=== PATIENT | male | born 1975 | race Caucasian/White ===

== ENCOUNTER 2023-01-12 05:34 | Inpatient (IN) | payer SELFPAY ==
[~2023-01-12] VITALS: Ht 175.3 cm; Wt 90.7 kg
[2023-01-12 05:55] VITALS: BP_SYST 124; PULSE 72; RESP 17; TEMP 97.9; O2SAT 95
[2023-01-12] MEDS ORDERED: NACL 0.9% 1,000 ML IV ONE ×2 (06:15→08:30)
[2023-01-12] MEDS ORDERED: MORPHINE 4 MG INJ. 4 MG/ML VIAL IVP ONE (06:15)
[2023-01-12] MEDS ORDERED: ONDANSETRON HCL 4 MG/2 ML VIAL IVP ONE (06:15)
[2023-01-12 06:25] LABS: BASOPHILS % (AUTO) 0.2 % (0.0-2.0); EOSINOPHILS % (AUTO) 0.1 % (0.0-4.0); HEMOGLOBIN 15.2 g/dL (14.0-18.0); LYMPHOCYTES # (AUTO) 0.8 K/uL (1.0-5.5); LYMPHOCYTES % (AUTO) 5.7 % (20.5-51.5); MEAN CORPUSCULAR HEMOGLOBIN 27 pg (27-31); MEAN CORPUSCULAR HGB CONC 32 % (32-36); MEAN CORPUSCULAR VOLUME 83 fL (79.0-98.0); MONOCYTES # (AUTO) 0.6 K/uL (0.0-1.0); MONOCYTES % (AUTO) 4.3 % (1.7-9.3); NEUTROPHILS # (AUTO) 11.8 K/uL (1.8-7.7); NEUTROPHILS % (AUTO) 89.7 % (40.0-70.0); PLATELET COUNT (AUTO) 162 K/uL (130-430); RED BLOOD CELL COUNT(AUTO) 5.69 MIL/uL (4.2-6.2); RED CELL DISTRIBUTION WIDTH 13.1 % (9.0-15.0); WHITE BLOOD COUNT (AUTO) 13.2 K/uL (4.8-10.8)
[2023-01-12 06:39] LABS: CALCIUM 9.3 mg/dL (8.4-11.0); CREATININE 0.99 mg/dL (0.55-1.30); POTASSIUM 4.1 mmol/L (3.5-5.1)
[2023-01-12 06:45] LABS: ALBUMIN 3.8 g/dL (3.4-4.8); BILIRUBIN,DIRECT 0.2 mg/dL (0.0-0.3); TOTAL BILIRUBIN 0.8 mg/dL (0.0-1.0); TOTAL PROTEIN, SERUM 7.1 g/dL (6.4-8.3)
[2023-01-12 07:42] LABS: BILIRUBIN,URINE NEGATIVE (NEGATIVE); BLOOD, URINE NEGATIVE (NEGATIVE); CLARITY/URINE CLEAR (CLEAR); COLOR,URINE YELLOW (YELLOW); GLUCOSE,URINE NEGATIVE (NEGATIVE); KETONES,URINE NEGATIVE (NEGATIVE); LEUKOCYTE ESTERASE ,URINE NEGATIVE (NEGATIVE); NITRITE, URINE NEGATIVE (NEGATIVE); PROTEIN URINE NEGATIVE (NEGATIVE); UROBILINOGEN,URINE 0.2 (0.2-1.0)
[2023-01-12] MEDS ORDERED: CIPROFLOXACIN LACT 400 MG/D5W 200 ML IV ONE (09:00)
[2023-01-12] MEDS ORDERED: PIPERACILLIN/TAZO 3.375 GM in NS 50 ML IV SCH (10:30)
[2023-01-12] MEDS ORDERED: ONDANSETRON HCL 4 MG/2 ML VIAL IVP PRN ×3 (10:45→23:30)
[2023-01-12] MEDS: D5LR 1,000 ML IV SCH ×2 (10:55→20:51)
[2023-01-12] MEDS: MORPHINE 4 MG INJ. 4 MG/ML VIAL IVP PRN ×3 (11:23→23:50)
[2023-01-12] MEDS ORDERED: ACETAMINOPHEN 325 MG TABLET PO PRN ×2 (14:15)
[2023-01-12] MEDS: metroNIDAZOLE 500 mg/NS 100 ML IV SCH (14:24)
[2023-01-12 19:10] VITALS: BP_SYST 117; PULSE 82; RESP 16; TEMP 98.4; O2SAT 97
[2023-01-12 20:00] VITALS: BP_SYST 111; PULSE 74; RESP 16; TEMP 99; O2SAT 95
[2023-01-12] MEDS ORDERED: fentaNYL CITRATE/PF 100 MCG/2 ML AMP ONE (21:15)
[2023-01-12] MEDS ORDERED: ACETAMINOPHEN I.V. 1000 MG 100 ML IV ONE (21:16)
[2023-01-12] MEDS ORDERED: MIDAZOLAM HCL 2 MG/2 ML VIAL (VERSED) ONE (21:16)
[2023-01-12] MEDS ORDERED: PIPERACILLIN/TAZO 3.375/DEX-IS 50 ML IV ONE (21:45)
[2023-01-12] MEDS ORDERED: PIPERACILLIN/TAZOBACTAM 3.375 GM/VIAL (ZOSYN) IV ONE (21:48)
[2023-01-12] MEDS ORDERED: LR 1,000 ML IV ONE (23:00)
[2023-01-12] MEDS ORDERED: HYDROmorphone 1 MG/ML INJ. CARTRIDGE IVP PRN ×2 (23:00)
[2023-01-12] MEDS ORDERED: fentaNYL CITRATE/PF 100 MCG/2 ML AMP IVP PRN (23:00)
[2023-01-12] MEDS ORDERED: NS IRRIG SOLN 1000 ML IR ONE (23:28)
[2023-01-12] MEDS ORDERED: NS 1000 ML IV.SOLN IV ONE (23:28)
[2023-01-12] MEDS ORDERED: LR 1,000 ML IV.SOLN IV ONE (23:28)
[2023-01-12] MEDS ORDERED: BUPIVACAINE /PF 0.25% 30 ML VIAL INJ ONE (23:28)
[2023-01-12] MEDS ORDERED: SUCCINYLCHOLINE CHLORIDE 20 MG/ML(QUELICIN) ONE (23:28)
[2023-01-12] MEDS ORDERED: SEVOFLURANE 15 MIN GAS INH ONE (23:28)
[2023-01-12] MEDS ORDERED: ROCURONIUM BROMIDE 10 MG/ML (ZEMURON) ONE (23:28)
[2023-01-12] MEDS ORDERED: LIDOCAINE 2%, 20 ML MDV ONE (23:28)
[2023-01-12] MEDS ORDERED: SUGAMMADEX SODIUM 200 MG/2 ML VIAL IV ONE (23:28)
[2023-01-12] MEDS ORDERED: PROPOFOL 200MG/ 20ML VIAL (DIPRIVAN) IV ONE (23:28)
[2023-01-12] MEDS ORDERED: ePHEDrine sulfate 50 MG/ML VIAL ONE (23:28)
[2023-01-12] MEDS ORDERED: DEXAMETHASONE SOD PHOSPHATE 4 MG/ML VIAL ONE (23:28)
[2023-01-12] MEDS ORDERED: IBUPROFEN 800 MG TABLET PO PRN (23:30)
[2023-01-12] MEDS ORDERED: traMADol HCL HCL 50 MG TABLET (ULTRAM) PO PRN (23:30)
[2023-01-12] MEDS ORDERED: MORPHINE 4 MG INJ. 4 MG/ML VIAL ONE (23:56)
[2023-01-13] VITALS (8 sets, daily range): BP systolic 102–140; PULSE 64–98; RESP 16–20; TEMP 97.7–99; O2SAT 44–99
[2023-01-13] MEDS: metroNIDAZOLE 500 mg/NS 100 ML IV SCH ×3 (02:21→18:16)
[2023-01-13] MEDS ORDERED: metroNIDAZOLE 500 mg/NS 100 ML IV SCH (06:00)
[2023-01-13] MEDS: D5LR 1,000 ML IV SCH (07:00)
[2023-01-13] MEDS: MORPHINE 4 MG INJ. 4 MG/ML VIAL IVP PRN ×2 (07:04→18:18)
[2023-01-13] MEDS: CIPROFLOXACIN LACT 400 MG/D5W 200 ML IV SCH ×2 (09:36→21:53)
[2023-01-13 12:13] LABS: BASOPHILS % (AUTO) 0.2 % (0.0-2.0); HEMATOCRIT 42.9 % (36-54); HEMOGLOBIN 13.9 g/dL (14.0-18.0); LYMPHOCYTES # (AUTO) 0.8 K/uL (1.0-5.5); LYMPHOCYTES % (AUTO) 7.7 % (20.5-51.5); MEAN CORPUSCULAR HEMOGLOBIN 27 pg (27-31); MEAN CORPUSCULAR HGB CONC 33 % (32-36); MEAN CORPUSCULAR VOLUME 84 fL (79.0-98.0); MONOCYTES # (AUTO) 0.9 K/uL (0.0-1.0); MONOCYTES % (AUTO) 9.1 % (1.7-9.3); NEUTROPHILS # (AUTO) 8.1 K/uL (1.8-7.7); PLATELET COUNT (AUTO) 122 K/uL (130-430); RED BLOOD CELL COUNT(AUTO) 5.12 MIL/uL (4.2-6.2); RED CELL DISTRIBUTION WIDTH 13.3 % (9.0-15.0); WHITE BLOOD COUNT (AUTO) 9.7 K/uL (4.8-10.8)
[2023-01-13 12:24] LABS: CALCIUM 8.5 mg/dL (8.4-11.0); CREATININE 1.03 mg/dL (0.55-1.30); POTASSIUM 3.7 mmol/L (3.5-5.1)
[2023-01-14 00:05] VITALS: BP_SYST 115; RESP 18; TEMP 98.8; O2SAT 97
[2023-01-14] MEDS: MORPHINE 4 MG INJ. 4 MG/ML VIAL IVP PRN ×2 (00:35→06:53)
[2023-01-14] MEDS: metroNIDAZOLE 500 mg/NS 100 ML IV SCH ×3 (02:02→19:03)
[2023-01-14 06:57] LABS: BASOPHILS % (AUTO) 0.2 % (0.0-2.0); EOSINOPHILS % (AUTO) 0.3 % (0.0-4.0); LYMPHOCYTES # (AUTO) 0.8 K/uL (1.0-5.5); LYMPHOCYTES % (AUTO) 8.9 % (20.5-51.5); MEAN CORPUSCULAR HEMOGLOBIN 27 pg (27-31); MEAN CORPUSCULAR HGB CONC 33 % (32-36); MEAN CORPUSCULAR VOLUME 84 fL (79.0-98.0); MONOCYTES # (AUTO) 0.9 K/uL (0.0-1.0); MONOCYTES % (AUTO) 9.9 % (1.7-9.3); NEUTROPHILS # (AUTO) 7.4 K/uL (1.8-7.7); NEUTROPHILS % (AUTO) 80.7 % (40.0-70.0); PLATELET COUNT (AUTO) 131 K/uL (130-430); RED BLOOD CELL COUNT(AUTO) 5.12 MIL/uL (4.2-6.2); RED CELL DISTRIBUTION WIDTH 13.5 % (9.0-15.0); WHITE BLOOD COUNT (AUTO) 9.1 K/uL (4.8-10.8)
[2023-01-14 07:10] LABS: CALCIUM 8.6 mg/dL (8.4-11.0); CREATININE 1.06 mg/dL (0.55-1.30); POTASSIUM 4.2 mmol/L (3.5-5.1)
[2023-01-14 08:00] VITALS: BP_SYST 126; PULSE 83; RESP 18; TEMP 98.9; O2SAT 98
[2023-01-14] MEDS: CIPROFLOXACIN LACT 400 MG/D5W 200 ML IV SCH ×2 (11:16→22:12)
[2023-01-14] MEDS: HYDROmorphone 2 MG TAB PO PRN ×2 (12:31→18:40)
[2023-01-14] MEDS: SIMETHICONE 80 MG TAB.CHEW PO PRN ×2 (12:32→18:39)
[2023-01-14 12:38] VITALS: BP_SYST 121; PULSE 54; RESP 17; TEMP 98.7; O2SAT 98
[2023-01-14] MEDS ORDERED: DOCUSATE SODIUM 250 MG CAPSULE PO ONE (14:45)
[2023-01-14 16:00] VITALS: BP_SYST 122; PULSE 84; RESP 18; TEMP 98.2; O2SAT 98
[2023-01-14 16:16] VITALS: BP_SYST 124; PULSE 82; RESP 18; TEMP 98.6; O2SAT 99
[2023-01-14 20:00] VITALS: BP_SYST 115; BP_SYST 117; PULSE 73; RESP 18; TEMP 98.2; O2SAT 94
[2023-01-14] MEDS: DOCUSATE SODIUM 250 MG CAPSULE PO SCH (22:12)
[2023-01-15 00:05] VITALS: BP_SYST 117; PULSE 79; RESP 18; TEMP 98.3; O2SAT 96
[2023-01-15] MEDS: metroNIDAZOLE 500 mg/NS 100 ML IV SCH ×3 (02:06→20:47)
[2023-01-15] MEDS: HYDROmorphone 2 MG TAB PO PRN ×2 (04:11→10:14)
[2023-01-15 08:00] VITALS: BP_SYST 126; PULSE 77; RESP 18; TEMP 98.4; O2SAT 98
[2023-01-15 09:23] LABS: BASOPHILS % (AUTO) 0.2 % (0.0-2.0); EOSINOPHILS # (AUTO) 0.1 K/uL (0.0-0.4); EOSINOPHILS % (AUTO) 1.2 % (0.0-4.0); HEMATOCRIT 44.4 % (36-54); HEMOGLOBIN 14.5 g/dL (14.0-18.0); LYMPHOCYTES # (AUTO) 0.7 K/uL (1.0-5.5); LYMPHOCYTES % (AUTO) 8.8 % (20.5-51.5); MEAN CORPUSCULAR HEMOGLOBIN 27 pg (27-31); MEAN CORPUSCULAR HGB CONC 33 % (32-36); MEAN CORPUSCULAR VOLUME 84 fL (79.0-98.0); MONOCYTES % (AUTO) 12.2 % (1.7-9.3); NEUTROPHILS # (AUTO) 6.2 K/uL (1.8-7.7); NEUTROPHILS % (AUTO) 77.6 % (40.0-70.0); PLATELET COUNT (AUTO) 159 K/uL (130-430); RED BLOOD CELL COUNT(AUTO) 5.29 MIL/uL (4.2-6.2); RED CELL DISTRIBUTION WIDTH 13.1 % (9.0-15.0)
[2023-01-15 09:35] LABS: CREATININE 0.95 mg/dL (0.55-1.30); POTASSIUM 3.6 mmol/L (3.5-5.1)
[2023-01-15] MEDS: DOCUSATE SODIUM 250 MG CAPSULE PO SCH ×2 (09:57→21:00)
[2023-01-15] MEDS: CIPROFLOXACIN LACT 400 MG/D5W 200 ML IV SCH ×2 (10:02→22:20)
[2023-01-15 12:00] VITALS: BP_SYST 128; PULSE 86; RESP 18; TEMP 98.4; O2SAT 100
[2023-01-15] MEDS ORDERED: SODIUM CHLORIDE 500 MG TABLET PO ONE (12:15)
[2023-01-15] MEDS: SODIUM CHLORIDE 500 MG TABLET PO SCH ×2 (13:00→22:21)
[2023-01-15] MEDS ORDERED: HYDROmorphone 2 MG TAB PO PRN (13:45)
[2023-01-15 16:00] VITALS: BP_SYST 132; PULSE 86; RESP 18; TEMP 98.8; O2SAT 99
[2023-01-15 20:00] VITALS: BP_SYST 119; PULSE 69; RESP 18; TEMP 98.2; O2SAT 96
[2023-01-16 00:05] VITALS: BP_SYST 115; PULSE 65; RESP 18; TEMP 98.6; O2SAT 96
[2023-01-16] MEDS: metroNIDAZOLE 500 mg/NS 100 ML IV SCH ×2 (02:53→10:19)
[2023-01-16 08:18] VITALS: BP_SYST 116; PULSE 70; RESP 18; TEMP 98.1; O2SAT 94
[2023-01-16] MEDS: CIPROFLOXACIN LACT 400 MG/D5W 200 ML IV SCH (09:29)
[2023-01-16] MEDS: SODIUM CHLORIDE 500 MG TABLET PO SCH (10:18)
[2023-01-16] MEDS: DOCUSATE SODIUM 250 MG CAPSULE PO SCH (10:18)
[2023-01-16 10:24] LABS: CALCIUM 9.1 mg/dL (8.4-11.0); POTASSIUM 4.3 mmol/L (3.5-5.1)
[2023-01-16] MEDS ORDERED: METR-154 PO (12:41)
[2023-01-16] MEDS ORDERED: CIPR500T5 PO (12:42)
[2023-01-16] MEDS ORDERED: LACT1CAP69 PO (12:43)
[2023-01-16 12:59] VITALS: BP_SYST 116; PULSE 70; RESP 18; TEMP 98.1; O2SAT 98
== END 2023-01-16 14:30 | disposition home or self-care (01) | DRG 336 ==
LOC: SED 05:34 → SMU 10:23
PROVIDERS: ADMIT Internal Medicine; ATTEND Internal Medicine
PROC: 0DNJ4ZZ Release Appendix, Percutaneous Endoscopic Approach (ICD-10-PCS; 2023-01-12)
PROC: 0DTJ4ZZ Resection of Appendix, Percutaneous Endoscopic Approach (ICD-10-PCS; principal; 2023-01-12 21:15)
DX: K35.80 Unspecified acute appendicitis (principal); E87.1 Hypo-osmolality and hyponatremia; J98.11 Atelectasis; E66.9 Obesity, unspecified; G47.33 Obstructive sleep apnea (adult) (pediatric); Z88.0 Allergy status to penicillin; Z79.899 Other long term (current) drug therapy; Z79.2 Long term (current) use of antibiotics; Z68.29 Body mass index [BMI] 29.0-29.9, adult
CPT/HCPCS: 36415; 71045; 76376; 80048; 80076; 81001; 81003; 83605; 83690; 85025; 87040; 88304; 93005; 96361; 96365; 96375; 97116-GP; 97530-GP; 99285; C1727; J0131; J0330; J0744; J1100; J1956; J2001; J2270; J2405; J2543; J2704; J3010; J3465; J3490; J7030; J7120; Q9967